=== PATIENT | female | born 1990 | race African-American/Black ===

== ENCOUNTER 2023-04-03 12:33 | Outpatient (REF) | payer MEDICAID, SELFPAY | END 2023-04-03 12:34 | disposition home or self-care (01) | LOC: HO.HHCLNP 12:33 | PROVIDERS: Visit Provider Family Medicine | DX: R30.9 Painful micturition, unspecified (principal) | CPT/HCPCS: 87086; 87088; 87186 ==

== ENCOUNTER 2024-03-09 15:59 | Outpatient (REF) | payer MEDICAID, SELFPAY ==
[2024-03-10 08:30] LABS: Bacterial Vaginosis PCR NEGATIVE (Negative); Candida Group PCR DETECTED (Not Detect); Candida glab krusei PCR NOT DETECTED (Not Detect); Trichomonas vaginalis PCR NOT DETECTED (Not Detect)
[2024-03-15 20:33] LABS: HPV mRNA E6/E7 rflx Not Detected (Not Detected)
== END 2024-03-09 16:00 | disposition home or self-care (01) ==
LOC: HO.HHCLNP 15:59
PROVIDERS: Visit Provider Advanced Practice Midwife
DX: N89.8 Other specified noninflammatory disorders of vagina (principal); Z12.4 Encounter for screening for malignant neoplasm of cervix
CPT/HCPCS: 0352U; 87624; 88142

== ENCOUNTER 2024-03-12 08:56 | Outpatient (REF) | payer MEDICAID, SELFPAY ==
--- NOTE | ~2024-03-12 | US_ITS ---
EXAMINATION: MM DIAGNOSTIC DIGITAL BREAST TOMOSYNTHESIS, BILATERAL US BREAST LIMITED, LEFT MAMMOGRAPHY: CLINICAL INFORMATION: Palpable 5:00 mass left breast with lateral breast pain. 33-year-old female. COMPARISON: Mammography: None. Baseline exam. TECHNIQUE: Digital breast tomosynthesis is performed in both the craniocaudal and mediolateral oblique views along with computer-aided detection (CAD). Synthesized 2D images are generated from the tomosynthesis. In addition, an added full-field 3-D right MLO view was obtained, as well as full-field 3-D left mediolateral view. This was followed by targeted left breast ultrasound. FINDINGS: The breasts are extremely dense, which lowers the sensitivity of mammography (ACR BI-RADS breast composition Category d). Tissue marker has been placed in the approximate 5:00 axis left breast with the aid of the patient marking the area of palpable concern and left breast pain. Technologist states no mass could be felt on her examination. Mammographic images demonstrate extremely dense breast tissue bilaterally without definite evidence of discernible underlying mass, suspicious calcifications, or region of architectural distortion. No abnormality could be identified in the left breast 5-6 o'clock axis near or subjacent to the tissue marker. Only dense breast tissue is seen. We will examine this region with ultrasound. ULTRASOUND: CLINICAL INFORMATION: As above. COMPARISON: No prior. TECHNIQUE: Targeted sonographic evaluation left breast spanning 4:00 to 8:00 was performed using a high frequency linear transducer. Selected archived documentation. FINDINGS: LEFT BREAST: -There is extremely dense fibroglandular glandular tissue. No masses, cystic abnormalities, abnormal shadowing, or architectural distortion identified. There is no sonographic correlate to the focus of palpable concern 5:00 left breast. US/US breast LT limited mamm only IMPRESSION: -There are no findings suspicious for malignancy in either breast. -There are is extremely dense fibroglandular tissue present in both breasts. -There is no sonographic or mammographic abnormality to correlate with the area of palpable concern 5:00 left breast. Recommend clinical management and follow-up. -Otherwise, recommend routine screening mammography age 39. OVERALL ASSESSMENT: Mammography: BI-RADS 1 - Negative Ultrasound: BI-RADS 1 - Negative RECOMMENDATION: 1. Patient should be managed based on the clinical impression. Decision to proceed with biopsy should be based on clinical grounds and degree of clinical concern. 2. Otherwise, routine annual screening mammography age 39. This patient's information was entered into a reminder system with a target due date for their next mammogram.
== END 2024-03-12 08:57 | disposition home or self-care (01) ==
LOC: HO.MAMMO 08:56
PROVIDERS: PCP Advanced Practice Midwife; Visit Provider Advanced Practice Midwife
DX: N63.23 Unspecified lump in the left breast, lower outer quadrant (principal)
CPT/HCPCS: 76642; 77062; 77066

== ENCOUNTER → 2024-03-12 09:00 | Outpatient (BNV) | payer MEDICAID, SELFPAY | PROVIDERS: PCP Advanced Practice Midwife; Visit Provider Radiology Diagnostic Radiology | DX: R92.323 Mammographic fibroglandular density, bilateral breasts (principal) | CPT/HCPCS: 76642; 77062; 77066 ==

== ENCOUNTER 2024-08-31 13:40 | Outpatient (REF) | payer MEDICAID, SELFPAY | END 2024-08-31 13:41 | disposition home or self-care (01) | LOC: HO.HHCX 13:40 | PROVIDERS: Visit Provider Internal Medicine | DX: S63.630A Sprain of interphalangeal joint of right index finger, initial encounter (principal) | CPT/HCPCS: 73140 ==